=== PATIENT | female | born 1955 | race Caucasian/White ===

== ENCOUNTER 2021-02-28 07:50 | Emergency (ER) | payer OTHER ==
[2021-02-28] MEDS ORDERED: diphenhydrAMINE 50 MG/ML SDV IVPUSH ONE (08:02)
[2021-02-28] MEDS ORDERED: Famotidine 20 MG/2 ML SDV IVPUSH ONE (08:17)
[2021-02-28] MEDS ORDERED: methylPREDNISolone Sodium Succinate 125 MG/2 ML SDV IVPUSH ONE (08:17)
--- NOTE | 2021-02-28 08:18 | EDM.PDOC ---
ED HPI GENERAL MEDICAL PROBLEM - General Chief Complaint: Allergic Reaction Stated Complaint: ALGERIC REACTION Time Seen by Provider: 02/28/21 08:10 Source of Information: Reports: Patient History Limitations: Reports: No Limitations - History of Present Illness INITIAL COMMENTS - FREE TEXT/NARRATIVE: 66-year-old female who reports yesterday afternoon she began to have itching on her head and particularly over the back of her head and then in about 6 PM she noted hives on her arms and in her armpits and along the creases of her groin but also on her posterior scalp and neck area. These hives have been present all through the night and she did take Benadryl 50 mg last night but this morning at about 6 AM when she awoke she noticed that her throat was scratchy and when she called [facility] in [place] this morning, they told her to call the ambulance. The embolus to come out and they evaluated the patient and she decided that she was going to come to the emergency room via private vehicle. Her drove her to the emergency department. Now she reports that she still has a scratchy throat and the hives which are itchy in the areas mentioned above. No weakness or dizziness. No pain. She would rate her pain as a 0/10. No nausea or vomiting. She is on amoxicillin for a previous dental procedure with a dental infection and post root canal. She has been on the amoxicillin now for almost 10 days. She has had no other medications and no other known exposures. There are no other associated signs or symptoms. There are no other modifying factors. Onset: Other (4 to 6 PM last night.) Duration: Getting Worse Location: Reports: Generalized Quality: Reports: Other (No pain. Just itching.) Severity: Moderate Improves with: Reports: None Worsens with: Reports: None Context: Reports: Other (As above.) Associated Symptoms: Reports: No Other Symptoms (Except as above.) Treatments [employer]: Reports: Other Medication(s) (Benadryl taken last night) - Related Data Allergies Allergy/AdvReac Type Severity Reaction Status Date / Time No Known Allergies Allergy Verified 02/28/21 08:02 Home Meds: Home Meds Amoxicillin 500 mg PO TID 02/28/21 [History] Famotidine [Pepcid] 20 mg PO BID #8 tab 02/28/21 [Rx] predniSONE [Prednisone] 40 mg PO DAILY 3 Days #6 tablet 02/28/21 [Rx] Past Medical History - Past Health History Medical/Surgical History: Denies Medical/Surgical History (No chronic medical problems. Surgical history as detailed below.) HEENT History: Reports: Impaired Vision Gastrointestinal History: Reports: Colon Polyp Endocrine/Metabolic History: Reports: Obesity/BMI 30+ - Past Surgical History GI Surgical History: Reports: Colonoscopy, EGD Dermatological Surgical History: Reports: None Social & Family History - Tobacco Use Tobacco Use Status *Q: Unknown Ever Used Tobacco (Nonsmoker.) - Caffeine Use Caffeine Use: Reports: Coffee, Soda - Alcohol Use Alcohol Use History: Yes Alcohol Use Frequency: Rarely - Living Situation & Occupation Living situation: Reports: Occupation: Retired ED ROS ALLERGIC REACTION - Review of Systems Review Of Systems: See Below Constitutional: Denies: Fever, Chills HEENT: Reports: Other (Scratchy throat.). Denies: Dental Pain (Her dental problem has basically completely resolved.) Respiratory: Reports: Cough (Mild cough associated with a scratchy throat.). Denies: Shortness of Breath Cardiovascular: Denies: Chest Pain, Palpitations Endocrine: Denies: Fatigue, Polyuria GI/Abdominal: Denies: Nausea, Vomiting : Denies: Dysuria, Pain Musculoskeletal: Denies: Neck Pain, Back Pain Skin: Reports: Rash, Urticaria Neurological: Denies: Dizziness, Headache Hematologic/Lymphatic: Denies: Easy Bleeding, Easy Bruising Immunologic: Reports: Other (No known allergies prior to this.). Denies: Food Allergy, Environmental Allergy, Seasonal Allergy ED EXAM GENERAL NO PERIP PULSE - Physical Exam Exam: See Below Exam Limited By: No Limitations General Appearance: Alert, WD/WN, No Apparent Distress (No evidence of respiratory distress. Nontoxic appearing.) Eye Exam: Bilateral Eye: EOMI, Normal Inspection, PERRL Ears: Normal External Exam, Hearing Grossly Normal Nose: Normal Inspection, Normal Mucosa, No Blood Throat/Mouth: Normal Inspection, Normal Lips, Normal Oropharynx, No Airway Compromise, Other (Somewhat scratchy voice. No stridor. Respiratory distress.) Head: Atraumatic, Normocephalic Neck: Supple, Non-Tender, Full Range of Motion, Other (Hives on posterior neck and occipital scalp area.) Respiratory/Chest: No Respiratory Distress, Lungs Clear, Normal Breath Sounds, No Accessory Muscle Use, Chest Non-Tender Cardiovascular: Normal Peripheral Pulses, Regular Rate, Rhythm, No Murmur GI/Abdominal: Normal Bowel Sounds, Soft, Non-Tender, No Mass Back Exam: Normal Inspection, Full Range of Motion Extremities: Normal Range of Motion, Non-Tender, No Pedal Edema, Normal Capillary Refill Neurological: Alert, Oriented, CN II-XII Intact, Normal Cognition, No Motor/Sensory Deficits Psychiatric: Normal Affect Skin Exam: Warm, Dry, Intact, Rash (Scattered urticaria.) Course - Vital Signs Last Recorded V/S: Last Vital Signs Temp 36.8 C 02/28/21 08:00 Pulse 72 02/28/21 09:24 Resp 17 02/28/21 08:42 BP 166/78 H 02/28/21 09:24 Pulse Ox 96 02/28/21 09:24 - Orders/Labs/Meds Meds: Medications Discontinued Medications Generic Name Dose Route Start Last Admin Trade Name Freq PRN Reason Stop Dose Admin Diphenhydramine HCl 50 mg 02/28/21 08:02 02/28/21 08:06 Diphenhydramine 50 Mg/Ml Sdv IVPUSH 02/28/21 08:03 50 mg ONETIME ONE Administration Famotidine 20 mg 02/28/21 08:17 02/28/21 08:29 Famotidine 20 Mg/2 Ml Sdv IVPUSH 02/28/21 08:18 20 mg ONETIME ONE Administration Methylprednisolone Sodium Succinate 125 mg 02/28/21 08:17 02/28/21 08:24 Methylprednisolone Sodium Succinate 125 Mg/2 Ml Sdv IVPUSH 02/28/21 08:18 125 mg ONETIME ONE Administration - Re-Assessments/Exams Free Text/Narrative Re-Assessment/Exam: 02/28/21 09:30: Patient feels improved. The scratchy throat has essentially resolved. The hives have improved. There is no weakness or dizziness. Her blood pressure is still elevated at 166/78. She is stable for discharge. The plan will be to treat the patient with prednisone daily for the next 3 days with the first dose tonight and then the next doses in the mornings. She will also be taking Benadryl 50 mg 4 times a day for the next 2 days and then as needed for allergic reaction and Pepcid 20 mg twice daily for the next 2 days and then as needed for allergic reaction. She is also to follow-up with her primary provider this week in regard to her elevated blood pressure. Precautions and reasons for return to the emergency department were discussed with the patient and with her while the patient was in the emergency department and were detailed in the patient's discharge instructions. Departure - Departure Time of Disposition: 09:40 Disposition: Home, Self-Care 01 Condition: Good Clinical Impression: Hives, Elevated blood pressure reading Allergic reaction to penicillin Qualifiers: Encounter type: initial encounter Qualified Code(s): T36.0X5A - Adverse effect of penicillins, initial encounter - Discharge Information Prescriptions: Famotidine [Pepcid] 20 mg PO BID #8 tab predniSONE [Prednisone] 40 mg PO DAILY 3 Days #6 tablet Instructions: Hives, [id number] Referrals: PCP,None [Primary Care Provider] - Forms: ED Department Discharge Additional Instructions: You are having an allergic reaction. It is most probably secondary to the amoxicillin that you have been taking. You should stop the amoxicillin and you should not take amoxicillin or any penicillins in the future. You also have an elevated blood pressure reading and have had an elevated blood pressure reading all through your emergency department stay. He will definitely need to follow-up with your primary provider this coming week in regard to your blood pressure. For the allergic reaction, you should take Benadryl 50 mg by mouth 4 times a day for the next 2 days and then as needed for allergic reaction. Other medications as prescribed (prednisone, Pepcid). These prescriptions were sent electronically to [facility] in [place]. You will need to pick these prescriptions up today. Back to the emergency department for worsening rash, trouble breathing, severe weakness, unrelenting vomiting or any other concerning signs or symptoms. Sepsis Event Note (ED) - Evaluation Sepsis Screening Result: No Definite Risk - Focused Exam Vital Signs: Vital Signs Temp Pulse Resp BP Pulse Ox 02/28/21 09:24 72 166/78 H 96 02/28/21 08:51 74 173/78 H 96 02/28/21 08:42 80 17 167/72 H 98 02/28/21 08:10 76 18 160/80 H 96 02/28/21 08:00 36.8 C 76 19 200/93 H 96
== END 2021-02-28 09:56 | disposition home or self-care (01) ==
LOC: FB.ED 07:50
DX: L50.0 Allergic urticaria (principal); T36.0X5A Adverse effect of penicillins, initial encounter; E66.9 Obesity, unspecified; Z68.34 Body mass index [BMI] 34.0-34.9, adult
CPT/HCPCS: 96374; 96375; 99283; J1200; J2930; J3490